=== PATIENT | female | born 1960 | race Caucasian/White ===

== ENCOUNTER 2017-02-06 12:36 | Emergency (ER) | payer SELFPAY ==
[~2017-02-06] VITALS: Ht 162.6 cm; Wt 95.3 kg
[2017-02-06] MEDS ORDERED: fentaNYL PF VIAL 100 MCG/2 ML VIAL IV ONE ×3 (14:00→17:45)
[2017-02-06] MEDS ORDERED: ONDANSETRON PF 4 MG/2 ML VIAL. IV ONE (14:00)
[2017-02-06] MEDS ORDERED: IV NORMAL SALINE 1000ML BAG 1,000 ML IV ONE (14:00)
[2017-02-06 14:08] LABS: BASO # 0.1 x10^3/uL (0.0-0.2); BASO % 1 % (0-3); EOS % 1 % (0-3); HEMATOCRIT 42.9 % (36.0-47.0); LYMPH % 20 % (24-48); MEAN CORPUSCULAR HEMOGLOBIN 32 pg (25-35); MEAN CORPUSCULAR HGB CONC 35 g/dL (31-37); MEAN CORPUSCULAR VOLUME 92 fL (79-100); MONO % 3 % (0-9); NEUT % 75 % (31-73); PLATELET COUNT 250 x10^3/uL (140-400); RED BLOOD COUNT 4.67 x10^6/uL (3.50-5.40); WHITE BLOOD COUNT 9.9 x10^3/uL (4.0-11.0)
[2017-02-06 14:09] LABS: BILIRUBIN,URINE NEGATIVE (NEG); GLUCOSE,URINE NEGATIVE (NEG); NITRITE,URINE POSITIVE (NEG); PH,URINE 6.5; PROTEIN,URINE 30 mg/dL (NEG-TRACE); UROBILINOGEN,URINE 0.2 mg/dL (0.2 mg/dL)
[2017-02-06 14:18] LABS: BACTERIA,URINE MANY /HPF (0-FEW); RBC,URINE >40 /HPF (0-2); SQUAMOUS EPITHELIAL CELL,UR MANY /LPF
[2017-02-06 14:32] LABS: ALBUMIN 4.2 g/dL (3.4-5.0); ALBUMIN/GLOBULIN RATIO 1.1 (1.0-1.7); CALCIUM 9.4 mg/dL (8.5-10.1); CREATININE 0.8 mg/dL (0.6-1.0); GFR 74.5; POTASSIUM 4.1 mmol/L (3.5-5.1); TOTAL BILIRUBIN 0.5 mg/dL (0.2-1.0)
[2017-02-06] MEDS ORDERED: CIPROFLOXACIN 400MG PREMIX 200 ML IV STA (14:35)
[2017-02-06] MEDS ORDERED: KETOROLAC TROMETHAMINE 30 MG/ML INJ. IV ONE (15:00)
--- NOTE | 2017-02-06 15:08 | RAD ---
CT abdomen/pelvis without contrast 02/06/2017 at 1419 hours Indication: Left flank pain with nausea and vomiting. Comparison: None available Technique: Multiple noncontrast CT images of the abdomen and pelvis were performed. Coronal and sagittal reformats are provided. Findings: Lung bases are clear. Calcified granuloma noted at the right lung base. Heart size is within normal limits. The liver is normal. The spleen is normal. Bilateral adrenal glands are normal. The gallbladder is present without adjacent inflammatory changes. Pancreas is normal in appearance. No peripancreatic inflammatory changes. The abdominal aorta is normal in course and caliber. Small partly calcified nodule in the ventral left abdomen measuring 9 mm representing area of prior omental infarct (series 2, image 51). There are no enlarged lymph nodes in the abdomen or pelvis. There is no free intraperitoneal air. No free fluid within the abdomen or pelvis. There is a 9.5 mm calculus in the proximal left ureter with associated mild to moderate left hydronephrosis and perinephric stranding. No additional renal calculi are identified. There is no hydronephrosis. No contour deforming renal mass. Small and large bowel are normal in caliber. A normal appendix is visualized. No pericolonic inflammatory changes are present. The urinary bladder is normal in appearance. No adnexal masses are identified. No suspicious osseous lesions are identified. Impression: There is a 9.5 mm calculus in the proximal left ureter with associated mild to moderate left hydronephrosis and perinephric stranding. No additional renal calculi are identified. Findings were discussed with ED nurse practitioner at 3:00 PM on 02/06/[address] Miles. PQRS Compliance Statement: One or more of the following individualized dose reduction techniques were utilized for this examination: 1. Automated exposure control 2. Adjustment of the mA and/or kV according to patient size 3. Use of iterative reconstruction technique
--- NOTE | 2017-02-06 15:44 | PHYS DOC ---
Past Medical History Past Medical History: Depression Past Surgical History: Other Additional Past Surgical Histo: D&C Alcohol Use: None Drug Use: None Adult General Chief Complaint Chief Complaint: ABDOMINAL PAIN HPI HPI Patient is a 56 year old female with history of depression who presents with left flank pain radiating to the left lower quadrant that began a couple days ago and got worse today. Patient is also complaining of nausea with no vomiting. Patient denies any previous history of kidney stones. Denies any urgency frequency or dysuria. Denies any fever. She appears to be in distress specifically pain. PCP Dr. Slaughter Review of Systems Review of Systems Constitutional: Denies fever or chills [] Eyes: Denies change in visual acuity, redness, or eye pain [] HENT: Denies nasal congestion or sore throat [] Respiratory: Denies cough or shortness of breath [] Cardiovascular: No additional information not addressed in HPI [] GI: Denies abdominal pain, nausea, vomiting, bloody stools or diarrhea [] : Left flank pain radiating to the left lower quadrant Musculoskeletal: Denies back pain or joint pain [] Integument: Denies rash or skin lesions [] Neurologic: Denies headache, focal weakness or sensory changes [] Endocrine: Denies polyuria or polydipsia [] Current Medications Current Medications Current Medications Medications (Trade) Dose Ordered Sig/[place] Start Time Stop Time Status Last Admin Dose Admin Ceftriaxone Sodium 50 ml @ 100 mls/hr 1X ONCE 02/06/17 16:30 02/06/17 16:59 DC 02/06/17 16:51 100 MLS/HR Ciprofloxacin Lactate 200 ml @ 200 mls/hr 1X STAT 02/06/17 14:35 02/06/17 15:34 DC 02/06/17 14:55 200 MLS/HR Fentanyl Citrate (Fentanyl 2ml Vial) 50 mcg 1X ONCE 02/06/17 17:45 02/06/17 17:46 DC 02/06/17 17:50 50 MCG Ketorolac Tromethamine (Toradol) 30 mg 1X ONCE 02/06/17 15:00 02/06/17 15:01 DC 02/06/17 15:00 30 MG Ondansetron HCl (Zofran) 4 mg 1X ONCE 02/06/17 14:00 02/06/17 14:01 DC 02/06/17 14:12 4 MG Sodium Chloride 1,000 ml @ 1,000 mls/hr 1X ONCE 02/06/17 14:00 02/06/17 14:59 DC 02/06/17 14:12 1,000 MLS/HR Tamsulosin HCl (Flomax) 0.4 mg 1X ONCE 02/06/17 17:45 02/06/17 17:46 DC 02/06/17 17:50 0.4 MG Allergies Allergies Allergies Coded Allergies Type Severity Reaction Last Updated Verified acetaminophen Adverse Reaction Mild nausea/vomiting 02/06/17 Yes hydrocodone Adverse Reaction Mild nausea/vomiting 02/06/17 Yes Physical Exam Physical Exam Constitutional: Well developed, well nourished, non-toxic appearance. Patient is writhing in pain HENT: Normocephalic, atraumatic, bilateral external ears normal, oropharynx moist, no oral exudates, nose normal. [] Eyes: PERRLA, EOMI, conjunctiva normal, no discharge. [] Neck: Normal range of motion, no tenderness, supple, no stridor. [] Cardiovascular:Heart rate regular rhythm, no murmur [] Lungs & Thorax: Bilateral breath sounds clear to auscultation [] Abdomen: Bowel sounds normal, soft, no tenderness, no masses, no pulsatile masses. [] Skin: Warm, dry, no erythema, no rash. [] Back: No tenderness, moderate left CVA tenderness. [] Extremities: No tenderness, no cyanosis, no clubbing, ROM intact, no edema. [] Neurologic: Alert and oriented X 3, normal motor function, normal sensory function, no focal deficits noted. [] Psychologic: Affect normal, judgement normal, mood normal. [] Current Patient Data Vital Signs Vital Signs Date Time Temp Pulse Resp B/P (MAP) Pulse Ox O2 Delivery O2 Flow Rate FiO2 02/06/17 16:55 57 102/68 (79) 98 Room Air 02/06/17 15:01 13 02/06/17 13:25 98.0 98.0 Lab Values Laboratory Tests Test 02/06/17 13:40 02/06/17 13:55 Urine Collection Type Unknown Urine Color Dk yellow Urine Clarity Cloudy Urine pH 6.5 Urine Specific Dumont 1.025 Urine Protein 30 mg/dL (NEG-TRACE) Urine Glucose (UA) Negative mg/dL (NEG) Urine Ketones (Stick) Trace mg/dL (NEG) Urine Blood Large (NEG) Urine Nitrite Positive (NEG) Urine Bilirubin Negative (NEG) Urine Urobilinogen Dipstick 0.2 mg/dL (0.2 mg/dL) Urine Leukocyte Esterase Moderate (NEG) Urine RBC >40 /HPF (0-2) Urine WBC 5-10 /HPF (0-4) Urine Squamous Epithelial Cells Many /LPF Urine Bacteria Many /HPF (0-FEW) Urine Mucus Marked /LPF White Blood Count 9.9 x10^3/uL (4.0-11.0) Red Blood Count 4.67 x10^6/uL (3.50-5.40) Hemoglobin 15.0 g/dL (12.0-15.5) Hematocrit 42.9 % (36.0-47.0) Mean Corpuscular Volume 92 fL (79-100) Mean Corpuscular Hemoglobin 32 pg (25-35) Mean Corpuscular Hemoglobin Concent 35 g/dL (31-37) Red Cell Distribution Width 14.0 % (11.5-14.5) Platelet Count 250 x10^3/uL (140-400) Neutrophils (%) (Auto) 75 % (31-73) H Lymphocytes (%) (Auto) 20 % (24-48) L Monocytes (%) (Auto) 3 % (0-9) Eosinophils (%) (Auto) 1 % (0-3) Basophils (%) (Auto) 1 % (0-3) Neutrophils # (Auto) 7.5 x10^3uL (1.8-7.7) Lymphocytes # (Auto) 2.0 x10^3/uL (1.0-4.8) Monocytes # (Auto) 0.3 x10^3/uL (0.0-1.1) Eosinophils # (Auto) 0.0 x10^3/uL (0.0-0.7) Basophils # (Auto) 0.1 x10^3/uL (0.0-0.2) Sodium Level 139 mmol/L (136-145) Potassium Level 4.1 mmol/L (3.5-5.1) Chloride Level 102 mmol/L (98-107) Carbon Dioxide Level 25 mmol/L (21-32) Anion Gap 12 (6-14) Blood Urea Nitrogen 12 mg/dL (7-20) Creatinine 0.8 mg/dL (0.6-1.0) Estimated GFR (Cockcroft-Gault) 74.5 BUN/Creatinine Ratio 15 (6-20) Glucose Level 111 mg/dL (70-99) H Calcium Level 9.4 mg/dL (8.5-10.1) Total Bilirubin 0.5 mg/dL (0.2-1.0) Aspartate Amino Transferase (AST) 20 U/L (15-37) Alanine Aminotransferase (ALT) 25 U/L (14-59) Alkaline Phosphatase 72 U/L (46-116) Total Protein 8.0 g/dL (6.4-8.2) Albumin 4.2 g/dL (3.4-5.0) Albumin/Globulin Ratio 1.1 (1.0-1.7) Lipase 113 U/L (73-393) Laboratory Tests 02/06/17 13:55 Laboratory Tests 02/06/17 13:55 EKG EKG [] Radiology/Procedures Radiology/Procedures []PROCEDURE: CT ABDOMEN PELVIS WO CONTRAST CT abdomen/pelvis without contrast 02/06/2017 at 1419 hours Indication: Left flank pain with nausea and vomiting. Comparison: None available Technique: Multiple noncontrast CT images of the abdomen and pelvis were performed. Coronal and sagittal reformats are provided. Findings: Lung bases are clear. Calcified granuloma noted at the right lung base. Heart size is within normal limits. The liver is normal. The spleen is normal. Bilateral adrenal glands are normal. The gallbladder is present without adjacent inflammatory changes. Pancreas is normal in appearance. No peripancreatic inflammatory changes. The abdominal aorta is normal in course and caliber. Small partly calcified nodule in the ventral left abdomen measuring 9 mm representing area of prior omental infarct (series 2, image 51). There are no enlarged lymph nodes in the abdomen or pelvis. There is no free intraperitoneal air. No free fluid within the abdomen or pelvis. There is a 9.5 mm calculus in the proximal left ureter with associated mild to moderate left hydronephrosis and perinephric stranding. No additional renal calculi are identified. There is no hydronephrosis. No contour deforming renal mass. Small and large bowel are normal in caliber. A normal appendix is visualized. No pericolonic inflammatory changes are present. The urinary bladder is normal in appearance. No adnexal masses are identified. No suspicious osseous lesions are identified. Impression: There is a 9.5 mm calculus in the proximal left ureter with associated mild to moderate left hydronephrosis and perinephric stranding. No additional renal calculi are identified. Findings were discussed with ED nurse practitioner at 3:00 PM on 02/06/[address] Villatoro. PQRS Compliance Statement: One or more of the following individualized dose reduction techniques were utilized for this examination: 1. Automated exposure control 2. Adjustment of the mA and/or kV according to patient size 3. Use of iterative reconstruction technique DICTATED and SIGNED BY: TOÑITO VILLATORO MD DATE: 02/06/17 0878 CC: SLICK SLAUGHTER MD; QIANA PEDROZA MD; NICHO COLVIN APRN ~ Course & Med Decision Making Course & Med Decision Making Pertinent Labs and Imaging studies reviewed. (See chart for details) This is a 56-year-old female patient who presents with left flank pain radiating to the left lower quadrant. Urine positive for infection. CBC CMP lipase with no acute findings. CT of the abdomen and pelvic was noted for a 9 mm calculus in the proximal left ureter with associated left moderate hydronephrosis and perinephric stranding. [facility] does not have a urologist today. 16:[address] Tay who accepted patient for admission at [facility] Patient has been given pain medicine in the ED, Zosyn, Cipro, Toradol and Flomax. Pain is manageable. Dragon Disclaimer Dragon Disclaimer This electronic medical record was generated, in whole or in part, using a voice recognition dictation system. Departure Departure Impression: Primary Impression: Kidney stone Disposition: 05 TRANSFER OTHER Condition: STABLE Referrals: SLICK SLAUGHTER MD (PCP) NICHO COLVIN APRN Feb 06, 2017 15:44
[2017-02-06 17:30] VITALS: BP 100/71
[2017-02-06] MEDS ORDERED: TAMSULOSIN 0.4 MG CAP.ER.24H. PO ONE (17:45)
== END 2017-02-06 18:06 | disposition short-term general hospital (02) ==
LOC: ER 12:36
DX: N13.2 Hydronephrosis with renal and ureteral calculous obstruction (principal); F32.9 Major depressive disorder, single episode, unspecified; Z88.5 Allergy status to narcotic agent; Z88.6 Allergy status to analgesic agent
CPT/HCPCS: 36415; 74176; 80053; 81001; 83690; 85027; 87086; 96361; 96365; 96367; 96375; 96376; 99285; J0690; J0744; J1885; J2405; J3010; J7030; 87186

== ENCOUNTER → 2021-10-18 | Outpatient (CLI) | payer MEDICAID ==
[~2021-10-18] MED LIST: AMOX1TAB11 PO; BUPR300T3 PO; DIPH25CA58 PO; FEXO180T81 PO; FLUT9.9S NS; GABA600T7 PO; OXYC5CAP PO
== END ==
LOC: LAB 11:11
PROVIDERS: ATTEND Orthopaedic Surgery Sports Medicine
DX: M75.121 Complete rotator cuff tear or rupture of right shoulder, not specified as traumatic (principal); Z01.812 Encounter for preprocedural laboratory examination; Z20.822 Contact with and (suspected) exposure to COVID-19
CPT/HCPCS: U0003

== ENCOUNTER 2021-10-22 05:59 | Day surgery (SDC) | payer MEDICAID ==
[~2021-10-22] VITALS: Ht 162.6 cm; Wt 102.7 kg
[~2021-10-22 05:59] MED LIST changes: -OXYC5CAP PO
[2021-10-22] MEDS ORDERED: PROCHLORPERAZINE 10 MG/2 ML VIAL. IVP PRN (06:00)
[2021-10-22] MEDS ORDERED: fentaNYL PF VIAL 100 MCG/2 ML VIAL IVP PRN (06:00)
[2021-10-22] MEDS ORDERED: IV RINGERS,LACTATED 1000ML 1,000 ML IV SCH (06:00)
[2021-10-22 06:32] VITALS: BP 148/80
[2021-10-22] MEDS ORDERED: SUCCINYLCHOLINE 200 MG/10 ML VIAL. ONE (07:10)
[2021-10-22] MEDS ORDERED: EPINEPHrine VIAL 30 MG/30 ML VIAL ONE (07:10)
[2021-10-22] MEDS ORDERED: ROCURONIUM 50 MG/5 ML VIAL. ONE (07:11)
[2021-10-22] MEDS ORDERED: fentaNYL PF VIAL 100 MCG/2 ML VIAL ONE ×2 (07:11→09:49)
[2021-10-22] MEDS ORDERED: LIDOCAINE 2% PF 5 ML VIAL. ONE (07:17)
[2021-10-22] MEDS ORDERED: DEXAMETHASONE SOD PHOS 4 MG/ML VIAL ONE (07:17)
[2021-10-22] MEDS ORDERED: SEVOFLURANE 31 TO 60 MINUTES. IH ONE (07:17)
[2021-10-22] MEDS ORDERED: ONDANSETRON PF 4 MG/2 ML VIAL. ONE ×2 (07:17→12:48)
[2021-10-22] MEDS ORDERED: PROPOFOL 10 MG/ML (20ML) VIAL. IV ONE (07:17)
[2021-10-22] MEDS ORDERED: PHENYLEPHRINE in 0.9% NACL PF 1 MG/10 ML SYRINGE. IV ONE (07:17)
[2021-10-22] MEDS ORDERED: OXYC5CAP PO (08:10)
--- NOTE | 2021-10-22 08:11 | DISCH ---
DISCHARGE INSTRUCTIONS Condition on Discharge Condition on Discharge: Stable Activity After Discharge Activity Instructions for Disc: Other, see below Other activity instructions: arm to remain in sling Bathing Instructions: Shower-keep dressing dry Weight Bearing Status after Di: Non weight bearing Diet after Discharge Diet after Discharge: Regular Wound Incision Care Wound/Incision Care: Ice to area for comfort, Keep wound/cast CDI, Change dressing Other wound/incision instructi: change dressing in [address] after DC Call your doctor for: Concerns you may have Follow-Up Follow up with: Shellie in 2 wks Treatment/Equipment after DC Adaptive Equipment Issued: None PHOEBE MCCRACKEN II, MD Oct 22, 2021 08:11
[2021-10-22] MEDS ORDERED: PHENYLEPHRINE 10 MG/ML VIAL. ONE (08:29)
[2021-10-22] MEDS ORDERED: BUPIVACAINE-EPI 0.5% 30 ML VIAL KIT. ONE (08:40)
[2021-10-22] MEDS ORDERED: GLYCOPYRROLATE 1 MG/5 ML VIAL. ONE (08:48)
[2021-10-22] MEDS ORDERED: NEOSTIGMINE METHYLSULFATE 5 MG/5 ML SYRINGE. ONE (08:52)
[2021-10-22] MEDS ORDERED: KETOROLAC 30 MG/ML VIAL. ONE (09:03)
--- NOTE | 2021-10-22 09:40 | PDOC4 ---
Operative Note Operative Note Date of procedure: 10/22/2021 Surgeon: Isaac Mccracken Gauger Chief: Juan Arroyo Preoperative diagnosis: Right shoulder rotator cuff tear, complete Postoperative diagnosis: Same Procedure performed: Arthroscopic right shoulder rotator cuff repair Complications: None Anesthesia: General plus local Findings: Glenohumeral cartilage was unremarkable Mild amount of fraying around anterior labrum, labrum was intact circumferentially Biceps tendon unremarkable Complete tear of supraspinatus and leading edge of infraspinatus Remainder of rotator cuff intact Components inserted: [employer] helical oil anchors x2, footprint for lateral row fixation Blood loss: 10 mL reason for procedure: Patient is a very pleasant right-handed female who presented to my outpatient orthopedic surgery clinic with complaints of right shoulder pain that have been chronic. She had tried and failed conservative therapies and because of this we had a discussion of the risk benefits and alternatives to the above surgery and she elected to proceed. Description of procedure: Patient was greeted in the preoperative area by myself or the correct extremity was verified and marked. She was taken to the operative suite and antibiotics were started as she was brought back. Once in the operating room, she was transferred gently supine to the operating room table and underwent successful induction of a general anesthetic. We then set her up in a beachchair position maintaining her C-spine in neutral position. She had a large pad under her legs. We then proceeded prep and drape right upper extremity and shoulder girdle in our usual sterile fashion and conducted our standard preoperative timeout. Ioban was used at the periphery of the drapes. I then palpated marked surface anatomy and sofie lines for my planned incisions. I used a spinal needle to localize a posterior superior portal and incised skin in accordance with this and then introduced the blunt arthroscopic trocar into the glenohumeral joint followed by the camera. I then used a spinal to localize an anterosuperior portal which I created and then introduced my probe and conducted my diagnostic arthroscopy. I did debride some of the labral fraying. I then directed my attention to creating a lateral portal and introduced the shaver to debride some of the footprint from the glenohumeral vantage point. I then reintroduced the camera into the subacromial space and performed a bursectomy with combination shaver and electrocautery device. I then debrided some more of the rotator cuff and prepared the rest of my footprint. After this I created an accessory anterolateral and posterolateral portals for suture management. I then placed a short green cannula and proceeded to place 2 suture anchors and passed the sutures through a simple configuration was with with my first pass device. I then tied these down using arthroscopic knot tying techniques, I took care not to incarcerate the biceps tendon and had this visualized during knot-tying and more importantly suture passage. I cut 1 limb from each of these knots and then incorporated the remainder of the limbs into my lateral row fixation. I was overall happy with the perirepair. She had no motion in the rotator cuff repair during gentle glenohumeral motion. I then removed all arthroscopic equipment and excess arthroscopic fluid. After this the portals were closed with simple interrupted 3-0 nylon. Local anesthetic was injected in the periportal soft tissues. The arm was cleansed and dried and a sterile bulky dressing was applied followed by an abduction pillow sling. She was then laid supine and transferred gently spine to the recovery room cart and taken to PACU in a stable and extubated condition. Postoperative plan is to discharge her home, nonweightbearing, we will get her started on physical therapy, I will see her back in 2 weeks, sooner should a problem arise. ISAAC MCCRACKEN II, MD Oct 22, 2021 09:40
[2021-10-22] MEDS ORDERED: oxyCODONE IR 5 MG TABLET PO ONE (09:45)
[2021-10-22] MEDS ORDERED: MORPHINE SULFATE 2 MG/ML INJ. ONE (09:49)
[2021-10-22] MEDS: MORPHINE SULFATE 2 MG/ML INJ. IVP PRN ×2 (09:53→10:04)
[2021-10-22] MEDS: fentaNYL PF VIAL 100 MCG/2 ML VIAL IVP PRN ×2 (09:53→09:59)
[2021-10-22] MEDS ORDERED: HYDROmorphone 2 MG/ML INJ. ONE (10:04)
[2021-10-22] MEDS: HYDROmorphone 2 MG/ML INJ. IVP PRN ×4 (10:07→10:40)
[2021-10-22] MEDS ORDERED: PROCHLORPERAZINE 10 MG/2 ML VIAL. ONE (10:09)
[2021-10-22] MEDS ORDERED: ONDANSETRON PF 4 MG/2 ML VIAL. IVP STA (12:56)
[2021-10-22 14:00] VITALS: BP 122/64
== END 2021-10-22 14:15 | disposition home or self-care (01) ==
LOC: SURG 05:59
PROVIDERS: ATTEND Orthopaedic Surgery Sports Medicine
DX: M75.121 Complete rotator cuff tear or rupture of right shoulder, not specified as traumatic (principal); M19.90 Unspecified osteoarthritis, unspecified site; F41.9 Anxiety disorder, unspecified; F32.9 Major depressive disorder, single episode, unspecified; F17.210 Nicotine dependence, cigarettes, uncomplicated; Z79.899 Other long term (current) drug therapy; Z98.890 Other specified postprocedural states; Z90.710 Acquired absence of both cervix and uterus; Z72.89 Other problems related to lifestyle; Z88.8 Allergy status to other drugs, medicaments and biological substances
CPT/HCPCS: 29827; 36415; 82306; A4355; A4565; A4928; A4930; A6253; C1713; J0171; J0330; J0690; J0780; J1100; J1170; J1885; J2270; J2370; J2405; J2704; J2710; J3010; J3490; A4452